=== PATIENT | male | born 1960 | race Caucasian/White ===

== ENCOUNTER 2017-12-21 20:42 | Emergency (ER) | payer BC, MEDICARE ==
--- NOTE | 2017-12-21 22:37 | ED ---
Throat Pain/Nasal Congestion - HPI Summary HPI Summary: This is a 57-year-old man on Coumadin therapy who presents with several hours of epistaxis. He has tried pressure and has been unable to get the bleeding to stop. There was no history of trauma, nor any recent history of URI. He takes Coumadin for concerns over a blood clot in the vasculature associated with his transplanted kidney. He has been on Coumadin for the past 3 weeks. He had been on the hospital on heparin prior to being on Coumadin. - History of Current Complaint Chief Complaint: EDEpistaxis Time Seen by Provider: 12/21/17 22:11 Onset/Duration: Sudden Onset, Lasting Hours Severity: Moderate Associated Signs And Symptoms: Positive: Negative - Epiglottits Risk Factors Epiglottis Risk Factors: Negative - Allergies/Home Medications Allergies/Adverse Reactions: Allergies Allergy/AdvReac Type Severity Reaction Status Date / Time cardiac cath dye AdvReac Unknown Unknown Uncoded 12/21/17 20:52 Reaction Details PMH/Surg Hx/FS Hx/Imm Hx Previously Healthy: No Endocrine/Hematology History: Reports: Hx Diabetes Denies: Hx Thyroid Disease Cardiovascular History: Reports: Hx Angina, Hx Hypertension - MEDS, Hx Rheumatic Fever - childhood, Hx Valvular Heart Disease, Other Cardiovascular Problems/Disorders - ENLARGED HEART Respiratory History: Reports: Hx Sleep Apnea Denies: Hx Asthma, Hx Chronic Obstructive Pulmonary Disease (COPD) GI History: Reports: Hx Gastroesophageal Reflux Disease, Other GI Disorders - ( right) inguinal & umbilical hernia Denies: Hx Ulcer Musculoskeletal History: Reports: Hx Gout, Hx Tendonitis - BILAT SHOULDERS Sensory History: Reports: Hx Cataracts, Hx Contacts or Glasses - GLASSES Denies: Hx Hearing Aid Opthamlomology History: Reports: Hx Cataracts, Hx Contacts or Glasses - GLASSES Psychiatric History: Reports: Hx Depression - Cancer History Cancer Type, Location and Year: Left kidney cancerous , removed 2014 - Surgical History Surgery Procedure, Year, and Place: Left nephrectomy 10/2014 [place], [place], 05/1999 [facility]- (right) inguinal hernia & umbilical hernia repair, [place] in and then removed, kidney transplant Hx Anesthesia Reactions: No Infectious Disease History: No Infectious Disease History: Denies: Hx Hepatitis, Hx Human Immunodeficiency Virus (HIV), History Other Infectious Disease, Traveled Outside the [place] in Last 30 Days - Family History Known Family History: Positive: None Negative: Blood Disorder - Social History Alcohol Use: Rare Substance Use Type: Reports: None Smoking Status (MU): Former Smoker Type: Cigarettes Review of Systems Constitutional: Negative Negative: Fever, Chills Eyes: Negative Positive: Epistaxis Cardiovascular: Negative Respiratory: Negative Gastrointestinal: Negative Genitourinary: Negative All Other Systems Reviewed And Are Negative: Yes Physical Exam Triage Information Reviewed: Yes Vital Signs On Initial Exam: Initial Vitals Temp Pulse Resp BP Pulse Ox 36.7 C 89 16 173/88 94 12/21/17 20:49 12/21/17 20:49 12/21/17 20:49 12/21/17 20:49 12/21/17 20:49 Vital Signs Reviewed: Yes Appearance: Positive: Well-Appearing, No Pain Distress Skin: Positive: Warm, Dry Head/Face: Positive: Normal Head/Face Inspection Eyes: Positive: Normal ENT: Positive: Other - There is active bleeding from the right naris. Further assessment was limited due to active bleeding. Neck: Positive: Supple Respiratory/Lung Sounds: Positive: Clear to Auscultation, Breath Sounds Present Cardiovascular: Positive: Normal, RRR Neurological: Positive: Normal, Sensory/Motor Intact, Alert, Oriented to Person Place, Time Psychiatric: Positive: Normal, Affect/Mood Appropriate Procedures - Procedure Summary Procedure Summary: The patient was instructed to blow clots out of the right side of his nose. Following this, a moistened 5.5 cm Rhino Rocket was placed in the usual fashion of the right side of the nose. It was then inflated with 5 mL of air, which appeared to stop bleeding. Diagnostics - Vital Signs Vital Signs Temp Pulse Resp BP Pulse Ox 12/21/17 20:49 36.7 C 89 16 173/88 94 - Laboratory Lab Statement: Any lab studies that have been ordered have been reviewed, and results considered in the medical decision making process. EENT Course/Dx - Diagnoses Provider Diagnoses: Epistaxis, Warfarin-induced coagulopathy Discharge - Sign-Out/Discharge Documenting (check all that apply): Patient Departure - Discharge Plan Condition: Improved Disposition: HOME Referrals: Bryon Preciado MD [Primary Care Provider] - Additional Instructions: Please contact your kidney transplant doctors in [place] tomorrow as a decision will need to be made regarding whether to continue your coumadin, and if so you will need to see an ENT doctor. This would probably best be handled in [place] with their specialists. For tonight, skip the coumadin. - Billing Disposition and Condition Condition: IMPROVED Disposition: Home
[2017-12-21 22:40] LABS: Hematocrit 31 % (42-52); Hemoglobin 10.5 g/dl (14.0-18.0); Mean Corpuscular HGB Conc 34 g/dl (31-36); Mean Corpuscular Hemoglobin 29 pg (27-31); Mean Corpuscular Volume 85 fL (80-94); Mean Platelet Volume 6.9 um3 (7.4-10.4); Platelet Count 292 10^3/ul (150-450); Red Blood Count 3.64 10^6/ul (4.00-5.40); Red Cell Distribution Width 18 % (10.5-15); White Blood Count 5.3 10^3/ul (3.5-10.8)
[2017-12-21 22:43] LABS: ABS Basophils 0 10^3/ul (0-0.2); ABS Eosinophils 0.1 10^3/ul (0-0.6); ABS Lymphocytes 0.6 10^3/ul (1.0-4.8); ABS Monocytes 0.9 10^3/ul (0-0.8); ABS Neutrophils 3.9 10^3/ul (1.5-7.7); ABS Nucleated RBC 0 10^3/ul; Lymphocyte % 11.1 % (25-47); Nucleated Red Blood Cells % 0
[2017-12-21 22:44] LABS: INR 1.28 (0.77-1.02)
[2017-12-21 22:54] LABS: EGFR Non-African American 20.6 (>60)
[2017-12-22 00:08] VITALS: BP 181/77
== END 2017-12-21 23:44 | disposition home or self-care (01) ==
LOC: ED 20:42
DX: R04.0 Epistaxis (principal); Z87.891 Personal history of nicotine dependence; Z79.01 Long term (current) use of anticoagulants
CPT/HCPCS: 36415; 80048; 85025; 85610; 99282